=== PATIENT | female | born 1985 | race Two or more races ===

== ENCOUNTER → 2016-10-16 | Outpatient (CLI) | payer OTHER | LOC: FIMAGING 08:33 | PROVIDERS: ATTEND Obstetrics & Gynecology | DX: Z34.92 Encounter for supervision of normal pregnancy, unspecified, second trimester (principal); Z3A.20 20 weeks gestation of pregnancy ==

== ENCOUNTER → 2016-11-14 | Outpatient (CLI) | payer OTHER | LOC: FIMAGING 08:48 | PROVIDERS: ATTEND Obstetrics & Gynecology | DX: Z34.92 Encounter for supervision of normal pregnancy, unspecified, second trimester (principal); Z3A.25 25 weeks gestation of pregnancy; Z87.51 Personal history of pre-term labor ==

== ENCOUNTER 2017-02-12 04:30 | Inpatient (IN) | payer OTHER ==
[2017-02-12] MEDS ORDERED: OXYTOCIN/RINGERS LACTATE 1,000 ML IV PRN (04:56)
[2017-02-12] MEDS ORDERED: OLIVE OIL 118 ML BTL MISC PRN (04:56)
[2017-02-12] MEDS ORDERED: TERBUTALINE SULFATE 1 MG/ML VIAL IV PRN (04:56)
[2017-02-12] MEDS ORDERED: IBUPROFEN 600 MG TAB PO PRN (04:56)
[2017-02-12] MEDS ORDERED: LR 1,000 ML IV PRN (04:56)
[2017-02-12] MEDS ORDERED: EPSOM SALT 454 GM TP PRN (04:56)
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
[2017-02-12] MEDS ORDERED: OXYTOCIN 10 UNIT/ML VIAL ONE (05:55)
[2017-02-12] MEDS ORDERED: MISOPROSTOL 200 MCG TAB ONE (05:55)
[2017-02-12] MEDS ORDERED: OLIVE OIL 118 ML BTL ONE (05:55)
[2017-02-12] MEDS ORDERED: LIDOCAINE 1% 300 MG/30 ML SDV ONE (05:55)
[2017-02-12] MEDS ORDERED: AMMONIA AROMATIC 1 EACH AMP IH ONE (05:55)
[2017-02-12] MEDS ORDERED: TERBUTALINE SULFATE 1 MG/ML VIAL ONE (05:55)
[2017-02-12 06:11] LABS: % IMMATURE GRANULYOCYTES 1.3 % (0.0-1.1); ABSOLUTE IMMATURE GRANULOCYTES 0.12 10^3/uL (0.00-0.10); ADD DIFF? NO; ADD MORPH? NO; ADD SCAN? NO; ATYPICAL LYMPHOCYTE FLAG 0 (0-99); FRAGMENT RBC FLAG 0 (0-99); HEMATOCRIT 39.4 % (38.0-47.0); HEMOGLOBIN 12.9 g/dL (12.6-16.3); LEFT SHIFT FLG 10 (0-99); LIPEMIA HEMOLYSIS FLAG 80 (0-99); MEAN CELL HEMOGLOBIN 26.3 pg (27.9-34.1); MEAN CELL HEMOGLOBIN CONCENTR. 32.7 g/dL (32.4-36.7); MEAN CELL VOLUME 80.2 fL (81.5-99.8); MEAN PLATELET VOLUME 9.2 fL (8.7-11.7); PLATELET CLUMPS FLAG 0 (0-99); PLATELET COUNT 171 10^3/uL (150-400); RED BLOOD CELL COUNT 4.91 10^6/uL (4.18-5.33); RED CELL DISTRIBUTION WIDTH 16.8 % (11.5-15.2)
--- NOTE | 2017-02-12 09:16 | OBPROG ---
OBG Labor Progress Note Assessment/Plan: Assessment: 31 y/o @ 37 6/7 wks in active labor Plan: Continue expectant management GBS neg, no abx needed FHTs - Cat I tracing Pt desires nitrous 02/12/17 09:13 Subjective: Pt is in chair, states ctx's are getting more uncomfortable. Desires nitrous at this time. Objective: 02/12/17 05:25 Patient ABO/Rh B POSITIVE 02/12/17 05:25 [place] Current Contraction Pattern: Regular FHR (bpm): 140 FHR Pattern Variability: Moderate FHR Category: 1 Membranes: Intact Oxytocin Orders Assessment - Pre-Induction/Augmentation Assessment Gestational Age: 37 week(s) and 6 day(s) ICD10 Worksheet Patient Problems: Problems Problem Status Onset Active labor at term Acute - ICD10 Problem Qualifiers (1) Active labor at term
[2017-02-12] MEDS ORDERED: fentaNYL 2MCG/ML/BUP 0.1% RTU 100 ML BAG EP ONE (12:58)
[2017-02-12] MEDS ORDERED: BUPIVACAINE 0.25% 30 ML SDV ONE (12:59)
[2017-02-12] MEDS ORDERED: PHENYLEPHRINE HCL 100 MCG/ML SYR ONE (12:59)
[2017-02-12] MEDS ORDERED: fentaNYL 100 MCG/2 ML INJ ONE (13:00)
[2017-02-12] MEDS ORDERED: HYDROCORTISONE 0.5% CREAM TP PRN (14:58)
[2017-02-12] MEDS ORDERED: SIMETHICONE 80 MG TAB CHEW PO PRN (14:58)
--- NOTE | 2017-02-12 15:05 | OBDEL ---
Info Type: Vaginal GBS+: No Indications for Delivery: Spontaneous Labor Vaginal Delivery - Labor and Delivery Onset of Contractions Date: 02/12/17 Onset of Contractions Time: 01:30 Onset of Contractions Type: Spontaneous Rupture of Membranes Date: 02/12/17 Rupture of Membranes Time: 13:00 Rupture of Membranes Type: Spontaneous Amniotic Fluid Color: Clear Dilation Complete Date: 02/12/17 Dilation Complete Time: 13:00 Placenta Delivery Date: 02/12/17 Placenta Delivery Time: 14:45 Total Hours of Labor: 13 Laceration: 2nd Degree Repair: 3-0, Vicryl Vaginal Sponge Count Correct: Yes Vaginal Needle Count Correct: Yes Vaginal Sweep Performed: Yes EBL: 300 cc Delivery Events: Nuchal Cord (loose x 1; slipped over perineum) [place] Data Batista Delivery Date: 02/12/17 Delivery Time: 14:39 NNEKA: 02/27/17 Gestational Age: 37 week(s) and 6 day(s) Sex of Infant: Female Score (1 Min): 8 Score (5 Min): 9 ICD10 Worksheet Patient Problems: Problems Problem Status Onset Active labor at term Acute - ICD10 Problem Qualifiers (1) Active labor at term
[2017-02-12] MEDS: IBUPROFEN 600 MG TAB PO PRN ×2 (15:22→20:59)
[2017-02-12] MEDS: DOCUSATE SODIUM 100 MG CAP PO PRN (21:00)
[2017-02-13] MEDS: IBUPROFEN 600 MG TAB PO PRN ×4 (03:31→21:26)
--- NOTE | 2017-02-13 08:16 | OBPP ---
Progress Note Assessment/Plan: Assessment: well nipples intact pain fairly managed will try norco for pain relief and a binder to assist with back support voiding without difficulty ff@u alka fry guerda Plan:pp day 1 discharge to home tomorrow 02/13/17 08:13 Subjective: BAck and sacral pain difficulty sitting and moving to a standing position once standing feels better Objective: 02/12/17 05:25 Patient ABO/Rh B POSITIVE 02/12/17 05:25 Temp Pulse Resp BP Pulse Ox 36.6 C 99 16 106/63 02/12/17 21:00 02/12/17 21:00 02/12/17 21:00 02/12/17 21:00 Uterine Position/Fundal Height: At Umbilicus Uterine Tone: Firm Physical Exam - Physical Exam General Appearance: WD/WN, alert, no apparent distress Abdomen: other (ff@u) Extremities: normal range of motion, Bette's sign (negative bilaterally) DTR- Lower Extremities: Knee (R): 1+, Knee (L): 1+ (no clonus) Skin: normal color, warm/dry Neuro/Psych: no motor/sensory deficits, alert, normal mood/affect, oriented x 3
[2017-02-13] MEDS: HYDROCODONE/APAP 5/325 TAB PO PRN ×5 (08:22→21:26)
[2017-02-13] MEDS: DOCUSATE SODIUM 100 MG CAP PO PRN (08:23)
[2017-02-14] MEDS: HYDROCODONE/APAP 5/325 TAB PO PRN ×6 (00:33→14:22)
[2017-02-14] MEDS: IBUPROFEN 600 MG TAB PO PRN ×2 (03:31→10:08)
[2017-02-14] MEDS: DOCUSATE SODIUM 100 MG CAP PO PRN ×2 (03:39→10:08)
[2017-02-14 08:58] VITALS: BP 107/72; PULSE 85; RESP 15; TEMP 97.6; O2SAT 95
--- NOTE | 2017-02-14 12:34 | OBPP ---
Progress Note Assessment/Plan: Assessment: PPD 2 s/p tailbone pain Plan: D/C home 02/14/17 12:31 Subjective: Pt doing well except tailbone - had similar pain with first del - gradually improved after. Using [place] with some improvement. Baby is BF well and cramps tolerable. Bld has lessened. Objective: 02/12/17 05:25 Patient ABO/Rh B POSITIVE 02/12/17 05:25 Temp Pulse Resp BP Pulse Ox 36.4 C 85 15 107/72 95 02/14/17 07:45 02/14/17 07:45 02/14/17 07:45 02/14/17 07:45 02/14/17 07:45 Uterine Position/Fundal Height: Umbilicus -1 Uterine Tone: Firm Physical Exam - Physical Exam General Appearance: WD/WN Abdomen: soft, distended, other (FF at umb-1, lochia scant) Extremities: non-tender, pedal edema (mild) Skin: normal color, warm/dry Neuro/Psych: alert, normal mood/affect
--- NOTE | 2017-02-14 12:39 | OBGCSDC ---
General Delivery Information - General Info : 2 Para: 2 Delivery Physician/CNM: Jennifer Maza Admission Date: 02/12/17 Labs: Patient ABO/Rh B POSITIVE 02/12/17 05:25 Hct 39.4 % (38.0-47.0) 02/12/17 05:25 Vaginal - Diagnosis Labor: Spontaneous Presentation at Delivery: Vertex Rupture of Membranes Type: Spontaneous Amniotic Fluid Color: Clear Laceration: 2nd Degree Repair: 3-0, Vicryl Delivery Events: Nuchal Cord (loose x 1; slipped over perineum) - Operations/Procedures L&D Analgesia/Anesthesia Type: Local - Hospital Course : uncomplicated post course except tailbone pain - used [place] for pain - similar to pain after first delivery. - Delivery L&D Analgesia/Anesthesia Type: Local [place] Data Batista Delivery Date: 02/12/17 Delivery Time: 14:39 NNEKA: 02/27/17 Gestational Age: 38 week(s) and 1 day(s) Sex of Infant: Female [place] Weight (gm): 3052 kg Score (1 Min): 8 Score (5 Min): 9 Discharge Information - Discharge Information Discharge Medications: Hydrocodone (script for 20 given), Ibuprofen, Vitamins Condition: Good Instruction/Follow Up: Four Weeks, Six Weeks Discharge Physician/CNM: Karolina Kearns
== END 2017-02-14 14:59 | disposition home or self-care (01) | DRG 775 ==
LOC: OBSVTOIN 04:30 → FLD 04:30 → FOB 17:43
PROVIDERS: ADMIT Obstetrics & Gynecology; ATTEND Obstetrics & Gynecology
PROC: 0KQM0ZZ Repair Perineum Muscle, Open Approach (ICD-10-PCS; principal; 2017-02-12)
PROC: 10E0XZZ Delivery of Products of Conception, External Approach (ICD-10-PCS; principal; 2017-02-12)
DX: O70.1 Second degree perineal laceration during delivery (principal); O69.81X0 Labor and delivery complicated by cord around neck, without compression, not applicable or unspecified; Z3A.37 37 weeks gestation of pregnancy; Z37.0 Single live birth
CPT/HCPCS: J2370; J2590; J3010; J3105

== ENCOUNTER 2017-12-12 06:48 | Day surgery (SDC) | payer OTHER ==
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
[2017-12-12] MEDS ORDERED: ceFAZolin 2 GM/SWFI 2 GM/20 ML SYR IVP ONE (07:10)
[2017-12-12] MEDS ORDERED: ceFAZolin 2 GM/DEXTROSE 100 ML IV ONE (07:15)
[2017-12-12] MEDS ORDERED: LIDOCAINE 1% 2 ML INJ ID PRN (07:20)
[2017-12-12] MEDS ORDERED: LR 1,000 ML IV ONE (07:20)
[2017-12-12] MEDS ORDERED: LIDOCAINE 1% 2 ML INJ ONE (07:26)
[2017-12-12] MEDS ORDERED: BUPIVACAINE 0.5% 30 ML SDV ONE (07:34)
[2017-12-12] MEDS ORDERED: SILVER NITRATE APPLICATOR 1 APPL TP ONE (07:35)
--- NOTE | 2017-12-12 07:35 | PDHPUP ---
History & Physical Update H&P update statement: This history and physical update is based on an assessment of the patient which was completed after admission or registration (within 24 hours), but prior to the surgery/procedure. H&P update: H&P reviewed & patient examined, no change in patient's condition since H&P completed
[2017-12-12] MEDS ORDERED: MIDAZOLAM 2 MG/2 ML VIAL ONE (08:10)
[2017-12-12] MEDS ORDERED: MIDAZOLAM 2 MG/2 ML VIAL IVP ONE (08:13)
[2017-12-12] MEDS ORDERED: fentaNYL 100 MCG/2 ML INJ ONE (08:24)
[2017-12-12] MEDS ORDERED: PROPOFOL/EMULSION 500 MG/50 ML BOTTLE IV ONE (08:25)
[2017-12-12] MEDS ORDERED: ROCURONIUM 50 MG/5 ML VIAL ONE (08:25)
[2017-12-12] MEDS ORDERED: LIDOCAINE 2% 100 MG/5 ML SYR ONE (08:25)
[2017-12-12] MEDS ORDERED: DEXAMETHASONE 4 MG/ML VIAL ONE ×2 (08:36→08:37)
[2017-12-12] MEDS ORDERED: ONDANSETRON 4 MG/2 ML VIAL ONE (08:37)
[2017-12-12] MEDS ORDERED: PHENYLEPHRINE HCL 100 MCG/ML SYR ONE (08:40)
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
[2017-12-12] MEDS ORDERED: LR 500 ML IV PRN (09:02)
[2017-12-12] MEDS ORDERED: ACETAMINOPHEN 500 MG TAB PO PRN (09:02)
[2017-12-12] MEDS ORDERED: MEPERIDINE 25 MG/0.5 ML AMP IVP PRN (09:02)
[2017-12-12] MEDS ORDERED: DEXAMETHASONE 4 MG/ML VIAL IVP PRN (09:02)
[2017-12-12] MEDS ORDERED: ONDANSETRON 4 MG/2 ML VIAL IVP PRN (09:02)
[2017-12-12] MEDS ORDERED: HYDROCODONE/APAP 5/325 TAB PO PRN ×2 (09:02→09:25)
[2017-12-12] MEDS ORDERED: ALBUTEROL 3 ML DEYVIAL IH PRN (09:02)
[2017-12-12] MEDS ORDERED: oxyCODONE IR 5 MG TAB PO PRN (09:02)
[2017-12-12] MEDS ORDERED: fentaNYL 100 MCG/2 ML INJ IVP PRN (09:02)
[2017-12-12] MEDS ORDERED: LABETALOL HCL 5 MG/ML 20 ML MDV IVP PRN (09:02)
[2017-12-12] MEDS ORDERED: PROMETHAZINE HCL 25 MG/ML INJ IVP PRN (09:02)
[2017-12-12] MEDS ORDERED: NALOXONE HCL 0.4 MG/ML INJ IVP PRN (09:02)
[2017-12-12] MEDS ORDERED: PHENYLEPHRINE HCL 100 MCG/ML SYR IVP PRN (09:02)
[2017-12-12] MEDS ORDERED: METOCLOPRAMIDE 10 MG/2 ML VIAL IVP PRN (09:02)
[2017-12-12] MEDS ORDERED: NEOSTIGMINE METHYLSULFATE 3 MG/3 ML SYR ONE (09:09)
[2017-12-12] MEDS ORDERED: GLYCOPYRROLATE 0.2 MG/1 ML VIAL ONE ×2 (09:09)
--- NOTE | 2017-12-12 09:24 | POSTOPPROG ---
Post Op Note Date of Operation: 12/12/17 Surgeon: Jennifer Maza Filler Shredding Machine Loader: None Anesthesiologist: Wu Dai Anesthesia: GET(General Endotracheal) Pre-op Diagnosis: Request for permanent sterilization, family status complete Post-op Diagnosis: Request for permanent sterilization, family status complete Indication: 32 y/o who requests permanent sterilization, family status complete Procedure: Laparoscopic b/l salpingectomy Findings: Grossly normal appearing ut, tubes and ovaries; upper abdomen wnl Inf/Abcess present in the surg proc area at time of surgery?: No Depth: Organ Space EBL: Minimal (<2cc) Total fluids administered: 800cc LR UO: 200 cc clear urine at end Complications: None Specimen(s): Bilateral tubes
[2017-12-12 11:08] VITALS: BP 114/84
--- NOTE | 2017-12-12 18:22 | GOP ---
[f rep st] OPERATIVE REPORT DATE OF OPERATION: 12/12/2017 SURGEON: Jennifer Maza DO GERIATRIC SOCIAL WORK PROFESSOR: None. ANESTHESIA: General endotracheal. ANESTHESIOLOGIST: Wu Dai MD. PREOPERATIVE DIAGNOSIS: Request for permanent sterilization, family status is complete. POSTOPERATIVE DIAGNOSIS: Request for permanent sterilization, family status is complete. PROCEDURE PERFORMED: Laparoscopic bilateral salpingectomy. FINDINGS: Grossly normal-appearing uterus, tubes, and ovaries bilaterally. Upper abdomen grossly normal-appearing. SPECIMENS: Bilateral fallopian tubes. ESTIMATED BLOOD LOSS: Less than 2 cc. INDICATIONS: Patient is a 32-year-old 2, para 1-1-0-2, who requests permanent sterilization, stating family status is complete. We discussed the procedure, risks, benefits, alternatives including but not limited to bleeding, infection, and damage to surrounding organs. It is also risk reduction for ovarian cancer. Patient understands all risks of the procedure and wants to proceed at this time. Patient was properly consented. DESCRIPTION OF PROCEDURE: Patient was taken to the operating room where general anesthesia was obtained without difficulty. Patient was then placed in dorsal lithotomy position, prepped and draped in the usual sterile fashion. A Le catheter was placed into her bladder. An open-sided speculum was then placed in the vagina. The anterior lip of the cervix was grasped with a single toothed tenaculum. The uterus was sounded to 8 cm and then an acorn uterine manipulator was then advanced into the cervix to provide a means to manipulate the uterus. We then turned our attention to the abdomen. The umbilicus was then infiltrated with 0.5% plain [place] and a stab incision was then made infraumbilically. A Veress needle was then placed into the incision while tenting the abdominal wall and negative aspiration was noted. Pneumoperitoneum was then obtained with CO2 gas. A 5 mm trocar containing a 5 mm zero-degree scope was then placed into the abdomen under direct visualization. The pelvic organs were then visualized. After injection of more local, 2 other ports were then placed under direct visualization, a 5 mm port in the left lower quadrant, and another 5 mm port in the right lower quadrant. The pelvic findings noted as above. At this time, the left tube was grasped with an atraumatic grasper, stabilized and followed out to the fimbria. Then, using LigaSure, the tube was dissected away from the mesosalpinx and ovary. This was done in multiple bites and then used to come across the tubal insertion into the uterus. The left fallopian tube was then removed through the 5 mm port without difficulty. Hemostasis was noted. We then turned our attention to the right side. In a similar fashion, the right tube was grasped with an atraumatic grasper, stabilized, and then using the LigaSure, the tube was dissected away from the mesosalpinx. This was done in multiple bites and we finally came across the tubal insertion into the uterus. Right fallopian tube was then removed through the 5 mm port without any difficulty. Operative site was examined and found to be hemostatic. There was no need to do any suction irrigation since there was no bleeding noted. All instruments were then removed from the patient's abdomen. The gas was allowed to escape from her abdomen. Skin incisions were then closed with Dermabond. The patient tolerated the procedure well. There were no complications. All sponge and instrument counts were correct x2 at the end of the procedure. The Le catheter, as well as the acorn uterine manipulator was removed. No bleeding was noted from the vagina. The patient was then returned to supine position, awoke from anesthesia, and taken to the recovery room in stable condition. IV FLUIDS: 800 cc LR. URINE OUTPUT: 200 cc of clear urine. COMPLICATIONS: None. /[id number]/MODL MTDD
== END 2017-12-12 11:20 | disposition home or self-care (01) ==
LOC: FSGY 06:48
PROVIDERS: ATTEND Obstetrics & Gynecology
PROC: 0UT74ZZ Resection of Bilateral Fallopian Tubes, Percutaneous Endoscopic Approach (ICD-10-PCS; principal; 2017-12-12 08:15)
DX: Z30.2 Encounter for sterilization (principal)
CPT/HCPCS: J0690; J1100; J2001; J2250; J2370; J2405; J2704; J2710; J3010